=== PATIENT | female | born 1985 | race Caucasian/White ===

== ENCOUNTER 2018-12-05 11:33 | Emergency (ER) | payer OTHER, MEDICAID ==
[~2018-12-05] VITALS: Ht 154.9 cm; Wt 61.9 kg
[~2018-12-05 11:33] MED LIST: BUSPAR15 MG; IBUPROFEN 800800 M1 PO; NORCO 5-325 TA1 EACH PO; PRENATAL
[2018-12-05 12:05] LABS: URINE BILIRUBIN NEGATIVE (Negative); URINE BLOOD NEGATIVE (Negative); URINE CLARITY CLEAR; URINE COLOR YELLOW; URINE GLUCOSE-RANDOM NEGATIVE (Negative); URINE KETONES NEGATIVE (Negative); URINE LEUKOCYTES-REFLEX 1+ (Negative); URINE NITRITE-REFLEX NEGATIVE (Negative); URINE PROTEIN NEGATIVE (Negative); URINE UROBILINOGEN 0.2 E.U./dl (0.2-1.0)
[2018-12-05 12:21] LABS: SQUAMOUS >10 Many /LPF (0-3)
[2018-12-05 12:22] LABS: URINE RBC 0-2 Rare /HPF (0-2); URINE WBC-REFLEX 0-5 Rare /HPF (0-5)
[2018-12-05 12:23] LABS: CASTS None Seen /LPF (None Seen); CRYSTALS None Seen /LPF (None Seen); MUCUS >6 Heavy strn/LPF (None Seen)
[2018-12-05 12:41] LABS: ABSOLUTE LYMPHOCYTES 1.5 thou/uL (0.8-5.3); ABSOLUTE MONOCYTES 0.5 thou/uL (0.0-1.2); ABSOLUTE NEUTROPHILS 5.6 thou/uL (1.6-8.1); BASOPHILS 0.5 %; EOSINOPHILS 0.3 %; HEMATOCRIT 42.1 % (37.0-47.0); HEMOGLOBIN 14.6 gm/dL (12.0-15.0); LYMPHOCYTES 19.3 %; MCH 30.6 pg (26.0-34.0); MCHC 34.6 g/dL (28.0-37.0); MCV 88.4 fL (80.0-100.0); MONOCYTES 6.5 %; MPV 7.1 fl. (7.2-11.1); NUCLEATED RBCS 0 /100WBC; PLATELET COUNT* 296 thou/uL (150-400); POLYS 73.4 %; RBC 4.76 mil/uL (4.20-5.00); RDW-CV 12.7 % (10.5-14.5); WBC 7.7 thou/uL (4.0-11.0)
[2018-12-05 12:49] LABS: CREATININE 0.7 mg/dL (0.6-1.3)
[2018-12-05 12:53] LABS: ALBUMIN 4.3 g/dL (3.4-5.0); TOTAL BILIRUBIN 0.7 mg/dL (<0.1-1.0); TOTAL PROTEIN 8.1 g/dL (6.4-8.2)
[2018-12-05] MEDS ORDERED: KEFLEX500 M1 PO (14:48)
[2018-12-05] MEDS ORDERED: FLAGYL500 M1 PO (15:05)
[2018-12-05 15:16] VITALS: BP 120/75
== END 2018-12-05 15:17 | disposition home or self-care (01) ==
LOC: M.ERS 11:33
PROVIDERS: Nurse Practitioner Family
DX: N39.0 Urinary tract infection, site not specified (principal); N76.0 Acute vaginitis; B96.89 Other specified bacterial agents as the cause of diseases classified elsewhere; R42 Dizziness and giddiness; Z88.6 Allergy status to analgesic agent

== ENCOUNTER 2020-08-18 18:43 | Emergency (ER) | payer OTHER, MEDICAID ==
[~2020-08-18] VITALS: Ht 154.9 cm; Wt 68.0 kg
[~2020-08-18 18:43] MED LIST changes: +FLAGYL500 M1 PO; +KEFLEX500 M1 PO
[2020-08-18] MEDS ORDERED: PROAIR HFA8.5 GM INH (18:57)
[2020-08-18] MEDS ORDERED: [UNRECOGNIZED DRUG - REMARK] (18:57)
[2020-08-18] MEDS ORDERED: ZPAK PO (19:34)
[2020-08-18 19:48] VITALS: BP 135/89
== END 2020-08-18 19:49 | disposition home or self-care (01) ==
LOC: M.ERS 18:43
DX: J02.9 Acute pharyngitis, unspecified (principal); R09.81 Nasal congestion; Z88.5 Allergy status to narcotic agent; Z88.6 Allergy status to analgesic agent

== ENCOUNTER 2020-08-31 16:43 | Emergency (ER) | payer OTHER, MEDICAID ==
[~2020-08-31] VITALS: Ht 154.9 cm; Wt 63.5 kg
[~2020-08-31 16:43] MED LIST changes: +PROAIR HFA8.5 GM INH; +ZPAK PO; +[UNRECOGNIZED DRUG - REMARK]
[2020-08-31 17:20] LABS: ABSOLUTE BASOPHILS 0.1 thou/uL (0.0-0.2); ABSOLUTE EOSINOPHILS 0.1 thou/uL (0.0-0.7); ABSOLUTE LYMPHOCYTES 2.7 thou/uL (0.8-5.3); ABSOLUTE MONOCYTES 0.9 thou/uL (0.0-1.2); ABSOLUTE NEUTROPHILS 7.9 thou/uL (1.6-8.1); BASOPHILS 0.6 %; EOSINOPHILS 0.5 %; HEMATOCRIT 39.8 % (37.0-47.0); LYMPHOCYTES 22.9 %; MCHC 35.2 g/dL (28.0-37.0); MONOCYTES 8.2 %; MPV 6.8 fl. (7.2-11.1); NUCLEATED RBCS 0 /100WBC; PLATELET COUNT* 345 thou/uL (150-400); POLYS 67.8 %; RBC 4.53 mil/uL (4.20-5.00); RDW-CV 12.7 % (10.5-14.5); WBC 11.6 thou/uL (4.0-11.0)
[2020-08-31 17:31] LABS: ALBUMIN 4.2 g/dL (3.4-5.0); CALCIUM 8.9 mg/dL (8.5-10.1); CREATININE 0.9 mg/dL (0.6-1.3); POTASSIUM 3.3 mmol/L (3.5-5.1); TOTAL BILIRUBIN 0.3 mg/dL (<0.1-1.0)
[2020-08-31 18:18] VITALS: BP 139/73
== END 2020-08-31 18:20 | disposition home or self-care (01) ==
LOC: M.ERS 16:43
PROVIDERS: Physician Assistant
DX: R19.7 Diarrhea, unspecified (principal); Z88.6 Allergy status to analgesic agent; Z88.8 Allergy status to other drugs, medicaments and biological substances

== ENCOUNTER 2020-09-11 08:29 | Emergency (ER) | payer OTHER, MEDICAID ==
[~2020-09-11] VITALS: Ht 154.9 cm; Wt 64.4 kg
[2020-09-11 08:54] LABS: HEMATOCRIT 41.5 % (37.0-47.0); HEMOGLOBIN 14.2 gm/dL (12.0-15.0); MCH 30.1 pg (26.0-34.0); MCHC 34.4 g/dL (28.0-37.0); MCV 87.5 fL (80.0-100.0); MPV 6.6 fl. (7.2-11.1); NUCLEATED RBCS 0 /100WBC; PLATELET COUNT* 310 thou/uL (150-400); RBC 4.74 mil/uL (4.20-5.00); RDW-CV 13.1 % (10.5-14.5); WBC 15.4 thou/uL (4.0-11.0)
[2020-09-11 09:04] LABS: ANION GAP 11 mmol/L (7-16); BUN 7 mg/dL (7-18); CHLORIDE 101 mmol/L (98-107); CO2 26 mmol/L (21-32); CREATININE 0.8 mg/dL (0.6-1.3); GLUCOSE 100 mg/dL (70-99); POTASSIUM 3.5 mmol/L (3.5-5.1); SODIUM 138 mmol/L (136-145)
[2020-09-11 09:10] LABS: APTT 27.5 Seconds (25.0-31.3); INR 1.1
[2020-09-11 09:16] LABS: ALBUMIN 4.2 g/dL (3.4-5.0); ALKALINE PHOSPHATASE 50 U/L (46-116); CK-MB MASS < 0.5 ng/mL (<0.5-3.6); LIPASE 80 U/L (73-393); NT-PRO BRAIN NAT PEPTIDE 13 pg/mL (<300); SGOT 16 U/L (15-37); SGPT 20 U/L (30-65); TOTAL BILIRUBIN 0.7 mg/dL (<0.1-1.0); TOTAL PROTEIN 8.1 g/dL (6.4-8.2)
[2020-09-11 09:22] LABS: ABSOLUTE LYMPHOCYTES 0.9 thou/uL (0.8-5.3); ABSOLUTE NEUTROPHILS 14.5 thou/uL (1.6-8.1); PLATELET ESTIMATE ADEQUATE
[2020-09-11 09:38] VITALS: BP 124/74
--- NOTE | 2020-09-11 15:58 | EKG ---
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
== END 2020-09-11 09:40 | disposition home or self-care (01) ==
LOC: M.ERS 08:29
PROVIDERS: Family Medicine
DX: F41.9 Anxiety disorder, unspecified (principal); Z88.5 Allergy status to narcotic agent; Z88.6 Allergy status to analgesic agent

== ENCOUNTER 2021-07-28 06:52 | Emergency (ER) | payer OTHER, MEDICAID ==
[~2021-07-28] VITALS: Ht 154.9 cm; Wt 64.9 kg
[2021-07-28] MEDS ORDERED: LISINOPRIL20 MG PO (07:20)
[2021-07-28] MEDS ORDERED: HYDROCODON-ACE1 EAC7 PO (07:42)
[2021-07-28] MEDS ORDERED: PREDNISONE 20 M20 M1 PO (07:42)
[2021-07-28 08:02] VITALS: BP 116/87
== END 2021-07-28 08:02 | disposition home or self-care (01) ==
LOC: M.ERS 06:52
DX: M71.522 Other bursitis, not elsewhere classified, left elbow (principal); Z98.1 Arthrodesis status; Z98.890 Other specified postprocedural states; Z79.899 Other long term (current) drug therapy; Z88.6 Allergy status to analgesic agent; Z88.8 Allergy status to other drugs, medicaments and biological substances

== ENCOUNTER 2021-10-13 15:40 | Emergency (ER) | payer OTHER, MEDICAID ==
[~2021-10-13] VITALS: Ht 154.9 cm; Wt 64.9 kg
[~2021-10-13 15:40] MED LIST changes: +HYDROCODON-ACE1 EAC7 PO; +LISINOPRIL20 MG PO; +PREDNISONE 20 M20 M1 PO
[2021-10-13 16:26] LABS: URINE BILIRUBIN NEGATIVE (Negative); URINE BLOOD NEGATIVE (Negative); URINE CLARITY CLEAR; URINE COLOR YELLOW; URINE GLUCOSE-RANDOM NEGATIVE (Negative); URINE KETONES NEGATIVE (Negative); URINE LEUKOCYTES NEGATIVE (Negative); URINE NITRITE NEGATIVE (Negative); URINE PROTEIN NEGATIVE (Negative); URINE SPECIFIC GRAVITY 1.015 (1.005-1.030); URINE UROBILINOGEN 0.2 E.U./dl (0.2-1.0)
[2021-10-13 17:02] LABS: ABSOLUTE EOSINOPHILS 0.1 thou/uL (0.0-0.7); ABSOLUTE LYMPHOCYTES 2.1 thou/uL (0.8-5.3); ABSOLUTE MONOCYTES 0.8 thou/uL (0.0-1.2); ABSOLUTE NEUTROPHILS 8.4 thou/uL (1.6-8.1); BASOPHILS 0.4 %; EOSINOPHILS 0.5 %; HEMATOCRIT 38.3 % (37.0-47.0); HEMOGLOBIN 13.3 gm/dL (12.0-15.0); LYMPHOCYTES 18.6 %; MCH 30.7 pg (26.0-34.0); MCHC 34.8 g/dL (28.0-37.0); MCV 88.4 fL (80.0-100.0); MONOCYTES 6.8 %; MPV 6.7 fl. (7.2-11.1); NUCLEATED RBCS 0 /100WBC; PLATELET COUNT* 322 thou/uL (150-400); POLYS 73.7 %; RBC 4.34 mil/uL (4.20-5.00); RDW-CV 12.5 % (10.5-14.5); WBC 11.4 thou/uL (4.0-11.0)
[2021-10-13 17:06] LABS: CALCIUM 8.9 mg/dL (8.5-10.1); CREATININE 0.8 mg/dL (0.6-1.3); POTASSIUM 3.8 mmol/L (3.5-5.1)
[2021-10-13 17:18] LABS: ALBUMIN 3.9 g/dL (3.4-5.0); TOTAL BILIRUBIN 0.3 mg/dL (<0.1-1.0); TOTAL PROTEIN 7.2 g/dL (6.4-8.2)
[2021-10-13] MEDS ORDERED: CYCLOBENZAPRINE5 MG PO (18:55)
[2021-10-13 19:07] VITALS: BP 121/65
== END 2021-10-13 19:08 | disposition home or self-care (01) ==
LOC: M.ERS 15:40
PROVIDERS: Physician Assistant
DX: R10.11 Right upper quadrant pain (principal); R11.0 Nausea; I10 Essential (primary) hypertension; Z98.51 Tubal ligation status; Z79.899 Other long term (current) drug therapy; Z88.8 Allergy status to other drugs, medicaments and biological substances; Z88.1 Allergy status to other antibiotic agents; Z87.42 Personal history of other diseases of the female genital tract

== ENCOUNTER → 2021-12-25 | Outpatient (CLI) | payer OTHER, MEDICAID ==
[~2021-12-25] MED LIST changes: +CYCLOBENZAPRINE5 MG PO
== END ==
LOC: M.RAD 16:30
PROVIDERS: ATTEND Nurse Practitioner Family
DX: R06.02 Shortness of breath (principal); M54.50 Low back pain, unspecified